=== PATIENT | male | born 1985 | race Two or more races ===

== ENCOUNTER 2024-07-29 14:00 | Outpatient (RCR) | payer MEDICAID, SELFPAY ==
--- NOTE | 2024-07-24 15:26 | PT.OIERPT ---
PT OP Initial Eval Patient Information Outpatient Physical Therapy Treatment Date: 07/24/24 Visit Reasons: Pain in RT shoulder Medical Diagnosis: M25.511 Treatment Dx #1: Right Shoulder Pain Treatment Dx #2: Right Shoulder Mobility Deficits Start of Care: 07/24/24 Date of Onset: 2 months ago Smoking Status Smoking Status: Never smoker Initial Assessment Subjective: Pt is a 38 y/o male reports of right shoulder pain (04/16) after he fell on it ~ 2 months ago. Pt's xray negative no MRI has been done. Pt has limitation with lifting, chores, self care, cooking, cleaning, and performing recreational activities. Objective: Right Shoulder PROM: all motions are WFL with pain in all planes Right Shoulder AROM Flexion: 90 deg Abduction: 90 deg ER and IR: unable Right Shoulder MMTs: grossly 3-/5 Right Scapula MMTs: grossly 3-/5 Assessment: Pt demonstrate right shoulder pain with mobility deficits leading to difficulty with ADLs. Pt will attempt physical therapy if pain persist Pt will be refer back to provider for further consultation. 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 1) Increase right shoulder AROM WFL in 6 wks to be able to perform overhead motions 2) Decrease shoulder pain to 2/10 in 6 wks to be able to perform self care activities 3) Increase right shoulder MMTs grossly to 3+/5 in 6 wks to be able to perform lifting activities 4) Increase right scapula MMTs grossly to 3+/5 in 6 wks to be able to perform recreational activities 5) Indep with HEP Treatment Plan 1) Manual Therapy 2) Therapeutic Activities 3) Therapeutic Exercises 4) Modalities (ice, heat) Frequency and Duration: 2 x wk for 6 wks Certification Dates: 07/24/24 to 10/22/24 Procedure Charges OP PT Eval Mod Complex 30 minutes: Yes
--- NOTE | 2024-07-29 14:45 | PT.ODAYNRPT ---
PT Outpatient Daily Note OP Daily Note Outpatient Physical Therapy Treatment Date: 07/29/24 Visit Reasons: Pain in RT shoulder Subjective: Pt's shoulder pain is about the same and continues to hurt. Objective: Please see flow chart for list of ther ex Assessment: difficulty with pain and can only move arm up to 90 deg of flexion with exercises Plan: Continue with PT Length of Time (minutes) of Treatment: 30 Minutes Procedure Charges Therapeutic Exercise 30 minutes: Yes
== END 2024-08-07 23:59 | disposition home or self-care (01) ==
LOC: CPTX 14:00
PROVIDERS: PCP Family Medicine; Referring Provider Family Medicine; Visit Provider Family Medicine
DX: M25.511 Pain in right shoulder (principal)
CPT/HCPCS: 97110; 97162